=== PATIENT | female | born 1995 | race Caucasian/White ===

== ENCOUNTER 2022-06-30 21:49 | Inpatient (IN) | payer BC ==
[~2022-06-30] VITALS: Ht 160 cm; Wt 74.8 kg
[2022-06-30 21:50] VITALS: BP_SYST 111
[2022-06-30] MEDS ORDERED: KETOROLAC TROMETHAMINE 30 MG VIAL IVP ONE (22:30)
[2022-06-30] MEDS ORDERED: NACL 0.9% 1,000 ML IV ONE (22:30)
[2022-06-30 23:06] LABS: BASOPHILS % (AUTO) 0.2 % (0.0-2.0); EOSINOPHILS % (AUTO) 0.2 % (0.0-4.0); HEMATOCRIT 40.4 % (36-48); HEMOGLOBIN 13.5 g/dL (12.0-16.0); LYMPHOCYTES # (AUTO) 1.6 K/uL (1.0-5.5); LYMPHOCYTES % (AUTO) 8.9 % (20.5-51.5); MEAN CORPUSCULAR HEMOGLOBIN 30 pg (27-31); MEAN CORPUSCULAR HGB CONC 33 % (32-36); MEAN CORPUSCULAR VOLUME 90 fL (79.0-98.0); MONOCYTES # (AUTO) 0.8 K/uL (0.0-1.0); MONOCYTES % (AUTO) 4.2 % (1.7-9.3); NEUTROPHILS # (AUTO) 15.9 K/uL (1.8-7.7); NEUTROPHILS % (AUTO) 86.5 % (40.0-70.0); PLATELET COUNT (AUTO) 276 K/uL (130-430); RED CELL DISTRIBUTION WIDTH 13.2 % (9.0-15.0); WHITE BLOOD COUNT (AUTO) 18.4 K/uL (4.8-10.8)
[2022-06-30 23:08] LABS: BILIRUBIN,URINE NEGATIVE (NEGATIVE); BLOOD, URINE 3+ (NEGATIVE); CLARITY/URINE CLEAR (CLEAR); COLOR,URINE YELLOW (YELLOW); GLUCOSE,URINE NEGATIVE (NEGATIVE); KETONES,URINE NEGATIVE (NEGATIVE); LEUKOCYTE ESTERASE ,URINE NEGATIVE (NEGATIVE); NITRITE, URINE NEGATIVE (NEGATIVE); PH,URINE 6.5 (5.0-8.0); PROTEIN URINE NEGATIVE (NEGATIVE); UROBILINOGEN,URINE 0.2 (0.2-1.0)
[2022-06-30 23:24] LABS: CALCIUM 9.3 mg/dL (8.4-11.0); CREATININE 0.86 mg/dL (0.55-1.30)
[2022-06-30 23:29] LABS: ALBUMIN 4.2 g/dL (3.4-4.8); BACTERIA,URINE FEW /HPF (None Seen); RBC,URINE 20-50 /HPF (0-3); TOTAL BILIRUBIN 0.4 mg/dL (0.0-1.0)
[2022-06-30 23:30] LABS: MUCUS,URINE None Seen /LPF (None Seen); YEAST,URINE None Seen /HPF (None Seen)
[2022-07-01] MEDS: MORPHINE 4 MG INJ. 4 MG/ML VIAL IVP ONE ×2 (01:07→01:11)
[2022-07-01] MEDS ORDERED: ONDANSETRON HCL 4 MG/2 ML VIAL IVP PRN (02:00)
[2022-07-01] MEDS: 0.45% NACL 1,000 ML IV SCH ×2 (02:00→16:14)
[2022-07-01] MEDS: MORPHINE 4 MG INJ. 4 MG/ML VIAL IVP PRN ×2 (05:36→20:51)
[2022-07-01 16:09] LABS: BASOPHILS # (AUTO) 0.1 K/uL (0.0-0.2); BASOPHILS % (AUTO) 0.6 % (0.0-2.0); EOSINOPHILS # (AUTO) 0.1 K/uL (0.0-0.4); EOSINOPHILS % (AUTO) 1.2 % (0.0-4.0); HEMATOCRIT 35.3 % (36-48); HEMOGLOBIN 11.9 g/dL (12.0-16.0); LYMPHOCYTES # (AUTO) 2.3 K/uL (1.0-5.5); MEAN CORPUSCULAR HEMOGLOBIN 30 pg (27-31); MEAN CORPUSCULAR HGB CONC 34 % (32-36); MEAN CORPUSCULAR VOLUME 91 fL (79.0-98.0); MONOCYTES # (AUTO) 0.9 K/uL (0.0-1.0); NEUTROPHILS # (AUTO) 6.2 K/uL (1.8-7.7); NEUTROPHILS % (AUTO) 65.2 % (40.0-70.0); PLATELET COUNT (AUTO) 247 K/uL (130-430); WHITE BLOOD COUNT (AUTO) 9.5 K/uL (4.8-10.8)
[2022-07-01 16:21] VITALS: BP_SYST 99
[2022-07-01 17:00] LABS: CALCIUM 8.1 mg/dL (8.4-11.0); CREATININE 0.8 mg/dL (0.55-1.30)
[2022-07-01 20:00] VITALS: BP_SYST 105
[2022-07-02 00:48] VITALS: BP_SYST 110
[2022-07-02] MEDS: 0.45% NACL 1,000 ML IV SCH (06:00)
[2022-07-02 11:32] VITALS: BP_SYST 104
[2022-07-02 14:02] VITALS: BP_SYST 104
[2022-07-02 16:39] VITALS: BP_SYST 125
== END 2022-07-02 15:05 | disposition home or self-care (01) | DRG 761 ==
LOC: SED 21:49 → SMU 07-01 01:53
PROVIDERS: ADMIT Internal Medicine; ATTEND Internal Medicine
DX: N83.209 Unspecified ovarian cyst, unspecified side (principal); Z20.822 Contact with and (suspected) exposure to COVID-19
CPT/HCPCS: 36415; 76376; 80048; 80053; 81000; 85025; 96361; 96374; 99285; J1885; J2270; J2405; J7030